=== PATIENT | female | born 1960 | race Caucasian/White ===

== ENCOUNTER 2021-11-13 20:47 | Emergency (ER) | payer BC ==
[2021-11-13] MEDS ORDERED: AUGMENTIN 875-1 EACH PO (22:09)
== END 2021-11-13 22:35 | disposition home or self-care (01) ==
LOC: ER1 20:47
DX: S61.412A Laceration without foreign body of left hand, initial encounter (principal); Z23 Encounter for immunization; W54.0XXA Bitten by dog, initial encounter; Y92.009 Unspecified place in unspecified non-institutional (private) residence as the place of occurrence of the external cause
CPT/HCPCS: 73130; 90471; 90715; 99283